=== PATIENT | male | born 1990 | race African-American/Black ===

== ENCOUNTER 2017-04-29 11:21 | Emergency (ER) | payer MEDICAID | END 2017-04-29 11:38 | disposition home or self-care (01) | LOC: E/R 11:21 | DX: J06.9 Acute upper respiratory infection, unspecified (principal) | CPT/HCPCS: 99283; Z7502 ==

== ENCOUNTER 2018-02-19 08:20 | Emergency (ER) | payer MEDICAID ==
[2018-02-19] MEDS: IPRATROPIUM (NEB) 0.5 MG/2.5 ML AMP NEB (09:29)
[2018-02-19] MEDS: ALBUTEROL 0.5% (NEB) 2.5 MG/0.5 ML AMP NEB (09:29)
[2018-02-19] MEDS: DEXAMETHASONE (1 MG/ML PO SYG) PO (09:52)
== END 2018-02-19 10:19 | disposition home or self-care (01) ==
LOC: FTE 08:20
DX: J40 Bronchitis, not specified as acute or chronic (principal); F17.210 Nicotine dependence, cigarettes, uncomplicated
CPT/HCPCS: 94644; 99283-25

== ENCOUNTER 2018-08-26 18:21 | Emergency (ER) | payer MEDICAID | END 2018-08-27 00:48 | disposition home or self-care (01) | LOC: FTE 08-27 00:48 | DX: S69.91XA Unspecified injury of right wrist, hand and finger(s), initial encounter (principal); F17.210 Nicotine dependence, cigarettes, uncomplicated; W18.39XA Other fall on same level, initial encounter; Y92.9 Unspecified place or not applicable | CPT/HCPCS: 29125; 73110-RT; 73130-RT; 99283-25 ==